=== PATIENT | female | born 1945 | race Caucasian/White ===

== ENCOUNTER 2017-03-07 13:08 | Inpatient (IN) | payer OTHER ==
[~2017-03-07] VITALS: Ht 152.4 cm; Wt 60.0 kg
[~2017-03-07 13:08] MED LIST: BACTRIM DS 8001 TA1 PO; CARAFATE1 G1 PO; HYDRODIURIL25 MG PO; LISINOPRIL40 MG PO; LOVASTATIN20 MG PO; MELOXICAM15 MG PO; METFORMIN500 MG PO; NEURONTIN300 MG PO; NORCO 5-325 TA1 EACH PO; OMEPRAZOLE20 MG PO; VICODIN 5/500 505 MG PO; VITAMIN D2000 IU PO; ZOFRAN4 MG PO
[2017-03-07 13:20] VITALS: BP 196/80; BP 200/80
[2017-03-07] MEDS ORDERED: NEURONTIN400 MG PO (13:24)
[2017-03-07] MEDS ORDERED: AMLODIPINE BESY1 TAB PO (13:25)
[2017-03-07] MEDS ORDERED: AMARYL2 MG PO (13:25)
[2017-03-07 14:09] LABS: BASO % 0.3 % (0.0-1.0); EOS # 0.1 10*3/uL (0.0-0.4); EOS % 1.1 % (1.0-4.0); HEMOGLOBIN 11.3 g/dl (12.0-16.0); LYMPH # 1.7 10*3/uL (1.3-4.4); LYMPH % 27.2 % (27.0-41.0); MEAN CELL VOLUME 97.6 fl (81.0-99.0); MEAN CORPUSCULAR HGB 30.6 pg (27.0-31.0); MEAN CORPUSCULAR HGB CONC 31.4 g/dl (33.0-37.0); MEAN PLATELET VOLUME 11.5 fl (9.6-12.3); MONO # 0.4 10*3/uL (0.1-1.0); MONO % 6.5 % (3.0-9.0); NEUT % 64.7 % (47.0-73.0); PLATELET COUNT AUTOMATED 180 10*3/uL (130-400); RED BLOOD COUNT 3.69 10*6/uL (4.10-5.10); RED CELL DISTRI WIDTH 11.9 % (0-14.5); WHITE BLOOD COUNT 6.1 10*3/uL (4.8-10.8)
[2017-03-07 14:30] LABS: ALBUMIN 3.4 gm/dl (3.1-4.5); ALKALINE PHOSPHATASE 86 U/L (45-117); BILIRUBIN, TOTAL 0.4 mg/dl (0.2-1.0); BUN 17 mg/dl (7-24); CARBON DIOXIDE 30 mmol/L (21-32); CHLORIDE 109 mmol/L (98-107); EST GLOM FILT AFRICAN AMERICAN > 60 ml/min; GLUCOSE 116 mg/dL (65-99); POTASSIUM 5.3 mmol/L (3.5-5.1); SGOT/AST 24 IU/L (3-35); SGPT/ALT 25 U/L (12-78); SODIUM 145 mmol/L (136-145); TOTAL PROTEIN 6.3 gm/dL (6.4-8.2)
[2017-03-07 15:24] VITALS: BP 195/80
[2017-03-07 15:56] LABS: BILIRUBIN NEGATIVE (NEGATIVE); BLOOD 2+ (NEGATIVE); CLARITY CLOUDY (CLEAR); COLOR YELLOW (YELLOW); GLUCOSE NEGATIVE (NEGATIVE); KETONE NEGATIVE (NEGATIVE); LEUKO ESTERASE 1+ (NEGATIVE); NITRITE NEGATIVE (NEGATIVE); PH 7.5 (5.0-9.0); PROTEIN NEGATIVE (NEGATIVE); UROBILINOGEN 0.2 E.U./dl (0.2-1.0)
[2017-03-07 16:05] LABS: BACTERIA 2+; URINE REFLEX COMMENT YES (NO); YEAST 1+
[2017-03-07 17:47] VITALS: BP 188/65
[2017-03-07 20:00] VITALS: BP 190/60
[2017-03-08] VITALS: BP 144/50
[2017-03-08 00:45] LABS: TROPONIN I 0.024 ng/ml (<0.045)
[2017-03-08 06:02] LABS: BASO % 0.2 % (0.0-1.0); EOS % 0.1 % (1.0-4.0); HEMATOCRIT 36.6 % (37.0-47.0); HEMOGLOBIN 11.3 g/dl (12.0-16.0); LYMPH # 1.3 10*3/uL (1.3-4.4); LYMPH % 15.6 % (27.0-41.0); MEAN CELL VOLUME 98.7 fl (81.0-99.0); MEAN CORPUSCULAR HGB 30.5 pg (27.0-31.0); MEAN CORPUSCULAR HGB CONC 30.9 g/dl (33.0-37.0); MEAN PLATELET VOLUME 11.8 fl (9.6-12.3); MONO # 0.6 10*3/uL (0.1-1.0); MONO % 7.1 % (3.0-9.0); NEUT # 6.5 10*3/uL (2.3-7.9); NEUT % 76.6 % (47.0-73.0); PLATELET COUNT AUTOMATED 193 10*3/uL (130-400); RED BLOOD COUNT 3.71 10*6/uL (4.10-5.10); RED CELL DISTRI WIDTH 11.8 % (0-14.5); WHITE BLOOD COUNT 8.5 10*3/uL (4.8-10.8)
[2017-03-08 06:15] LABS: CKMB 0.8 ng/ml (0.5-3.6); TROPONIN I 0.018 ng/ml (<0.045)
[2017-03-08 06:20] LABS: HEMOGLOBIN A1c 6.7 % (4.8-5.6)
[2017-03-08 06:33] LABS: CHLORIDE 108 mmol/L (98-107); SODIUM 145 mmol/L (136-145)
[2017-03-08 06:34] LABS: PROTHROMBIN TIME 10.8 SECONDS (9.0-12.4)
[2017-03-08 06:52] LABS: ALKALINE PHOSPHATASE 81 U/L (45-117); BILIRUBIN, TOTAL 0.4 mg/dl (0.2-1.0); BUN 16 mg/dl (7-24); CARBON DIOXIDE 27 mmol/L (21-32); CHOLESTEROL 151 mg/dL (<200); EST GLOM FILT AFRICAN AMERICAN > 60 ml/min; FREE T4 0.98 ng/dl (0.76-1.46); GLUCOSE 111 mg/dL (65-99); HDL CHOLESTEROL 80 mg/dl (40-60); LDL CHOLESTEROL 62 mg/dL (9-159); MAGNESIUM 1.7 mg/dL (1.5-2.1); SGOT/AST 15 IU/L (3-35); SGPT/ALT 21 U/L (12-78); TOTAL PROTEIN 5.7 gm/dL (6.4-8.2); TRIGLYCERIDES 46 mg/dl (<150); VLDL CHOLESTEROL 9 mg/dL (6-40)
[2017-03-08 06:53] LABS: POTASSIUM 4.1 mmol/L (3.5-5.1)
[2017-03-08 07:04] LABS: VITAMIN D, 25-HYDROXY 18.2 ng/mL (30-100)
[2017-03-08 07:08] LABS: FOLIC ACID > 24.00 ng/mL (>5.38)
[2017-03-08 08:00] VITALS: BP 129/56
[2017-03-08 11:47] VITALS: BP 141/63
[2017-03-08 12:00] VITALS: BP 141/63
[2017-03-08 12:27] LABS: CKMB 0.9 ng/ml (0.5-3.6); TROPONIN I 0.025 ng/ml (<0.045)
[2017-03-08 16:00] VITALS: BP 125/45
[2017-03-08 20:00] VITALS: BP 140/49
[2017-03-09] VITALS: BP 123/55
[2017-03-09 08:00] VITALS: BP 158/73
[2017-03-09] MEDS ORDERED: D-1000 185 MG-11 TAB PO (09:00)
[2017-03-09] MEDS ORDERED: DOXYCYCLINE100 MG PO (09:02)
[2017-03-09] MEDS ORDERED: DIFLUCAN150 MG PO (09:03)
== END 2017-03-09 11:40 | disposition home or self-care (01) | DRG 757 ==
LOC: ED 13:08 → EDHOLD 18:43 → 4E 18:43
PROVIDERS: Hospitalist; Physician Assistant
DX: B37.49 Other urogenital candidiasis (principal); G93.41 Metabolic encephalopathy; E44.0 Moderate protein-calorie malnutrition; E11.65 Type 2 diabetes mellitus with hyperglycemia; E78.5 Hyperlipidemia, unspecified; I10 Essential (primary) hypertension; M54.41 Lumbago with sciatica, right side; E87.5 Hyperkalemia; G47.33 Obstructive sleep apnea (adult) (pediatric); Z90.49 Acquired absence of other specified parts of digestive tract; Z82.49 Family history of ischemic heart disease and other diseases of the circulatory system; Z80.42 Family history of malignant neoplasm of prostate; Z91.013 Allergy to seafood; Z79.899 Other long term (current) drug therapy; Z68.25 Body mass index [BMI] 25.0-25.9, adult

== ENCOUNTER → 2017-10-24 | Outpatient (CLI) | payer OTHER ==
[~2017-10-24] MED LIST changes: +AMARYL2 MG PO; +AMLODIPINE BESY1 TAB PO; +D-1000 185 MG-11 TAB PO; +DIFLUCAN150 MG PO; +DOXYCYCLINE100 MG PO; +NEURONTIN400 MG PO
== END | disposition home or self-care (01) ==
LOC: MAMMO 08:22
DX: Z12.31 Encounter for screening mammogram for malignant neoplasm of breast (principal)

== ENCOUNTER → 2018-09-04 | Outpatient (CLI) | payer OTHER ==
[~2018-09-04] MED LIST changes: +B12100 MC1 PO; +BACTRIM 400-801 EACH PO; +FARXIGA5 M1 PO; +FLOMAX0.4 MG PO; +KLOR-CON 1010 ME1 PO; +LASIX20 MG PO; +PRILOSEC20 M1 PO; +TIZANIDINE2 MG PO; +Vitamin D PO
[2018-09-04 09:27] LABS: BILIRUBIN NEGATIVE (NEGATIVE); BLOOD 3+ (NEGATIVE); CLARITY CLEAR (CLEAR); COLOR YELLOW (YELLOW); GLUCOSE 2+ (NEGATIVE); KETONE NEGATIVE (NEGATIVE); LEUKO ESTERASE NEGATIVE (NEGATIVE); NITRITE NEGATIVE (NEGATIVE); SPECIFIC GRAVITY 1.015 (1.005-1.030); UROBILINOGEN 0.2 E.U./dl (0.2-1.0)
[2018-09-04 09:30] LABS: BASO % 0.5 % (0.0-1.0); EOS # 0.2 10*3/uL (0.0-0.4); EOS % 2.8 % (1.0-4.0); HEMATOCRIT 33.7 % (37.0-47.0); HEMOGLOBIN 10.3 g/dl (12.0-16.0); LYMPH # 1.6 10*3/uL (1.3-4.4); LYMPH % 27.1 % (27.0-41.0); MEAN CELL VOLUME 91.3 fl (81.0-99.0); MEAN CORPUSCULAR HGB 27.9 pg (27.0-31.0); MEAN CORPUSCULAR HGB CONC 30.6 g/dl (33.0-37.0); MEAN PLATELET VOLUME 11.1 fl (9.6-12.3); MONO # 0.4 10*3/uL (0.1-1.0); MONO % 7.6 % (3.0-9.0); NEUT # 3.6 10*3/uL (2.3-7.9); NEUT % 61.7 % (47.0-73.0); PLATELET COUNT AUTOMATED 223 10*3/uL (130-400); RED BLOOD COUNT 3.69 10*6/uL (4.10-5.10); RED CELL DISTRI WIDTH 14.6 % (0-14.5); WHITE BLOOD COUNT 5.8 10*3/uL (4.8-10.8)
[2018-09-04 09:49] LABS: ALBUMIN 3.8 gm/dl (3.1-4.5); CREATININE 1.21 mg/dL (0.55-1.02); POTASSIUM 4.6 mmol/L (3.5-5.1); TOTAL PROTEIN 6.9 gm/dL (6.4-8.2)
[2018-09-04 10:09] LABS: BACTERIA TRACE; RBC 51-100 rbc/hpf (0-2); WBC 0-2 wbc/hpf (0-5)
== END ==
LOC: LAB 08:48 → CT 10:00
PROVIDERS: Urology
DX: N20.0 Calculus of kidney (principal); I70.0 Atherosclerosis of aorta

== ENCOUNTER → 2018-10-01 | Outpatient (CLI) | payer OTHER | END | disposition home or self-care (01) | LOC: RAD 11:44 | DX: N20.0 Calculus of kidney (principal); R30.0 Dysuria; M43.27 Fusion of spine, lumbosacral region; Z96.0 Presence of urogenital implants ==

== ENCOUNTER → 2018-11-01 | Outpatient (CLI) | payer OTHER | END | disposition home or self-care (01) | LOC: US 14:54 | DX: E07.89 Other specified disorders of thyroid (principal) ==

== ENCOUNTER → 2018-12-11 | Outpatient (CLI) | payer OTHER ==
[~2018-12-11] MED LIST changes: +PYRIDIUM100 MG PO
[2018-12-11 18:36] LABS: BASO % 0.2 % (0.0-1.0); EOS # 0.1 10*3/uL (0.0-0.4); EOS % 1.3 % (1.0-4.0); HEMATOCRIT 31.4 % (37.0-47.0); HEMOGLOBIN 9.4 g/dl (12.0-16.0); LYMPH # 1.2 10*3/uL (1.3-4.4); LYMPH % 13.7 % (27.0-41.0); MEAN CELL VOLUME 87.5 fl (81.0-99.0); MEAN CORPUSCULAR HGB 26.2 pg (27.0-31.0); MEAN CORPUSCULAR HGB CONC 29.9 g/dl (33.0-37.0); MEAN PLATELET VOLUME 11.1 fl (9.6-12.3); MONO # 0.8 10*3/uL (0.1-1.0); MONO % 9.3 % (3.0-9.0); NEUT # 6.3 10*3/uL (2.3-7.9); NEUT % 75.1 % (47.0-73.0); PLATELET COUNT AUTOMATED 356 10*3/uL (130-400); RED BLOOD COUNT 3.59 10*6/uL (4.10-5.10); RED CELL DISTRI WIDTH 15.3 % (0-14.5); WHITE BLOOD COUNT 8.5 10*3/uL (4.8-10.8)
[2018-12-11 18:39] LABS: ALBUMIN 2.9 gm/dl (3.1-4.5); CREATININE 1.2 mg/dL (0.55-1.02); POTASSIUM 4.8 mmol/L (3.5-5.1); THYROXINE (T4) TOTAL 7.4 ug/dl (4.8-13.9); TOTAL PROTEIN 7.2 gm/dL (6.4-8.2)
== END | disposition home or self-care (01) ==
LOC: US 16:49 → LAB 16:49 → US 17:00
PROVIDERS: Urology
DX: N20.0 Calculus of kidney (principal); Q63.1 Lobulated, fused and horseshoe kidney; K56.7 Ileus, unspecified; E11.9 Type 2 diabetes mellitus without complications

== ENCOUNTER 2018-12-13 17:59 | Emergency (ER) | payer OTHER ==
[~2018-12-13 17:59] MED LIST changes: -PYRIDIUM100 MG PO
[2018-12-13 18:00] VITALS: BP 195/68
[2018-12-13 18:39] LABS: BASO % 0.1 % (0.0-1.0); EOS # 0.1 10*3/uL (0.0-0.4); EOS % 0.8 % (1.0-4.0); HEMATOCRIT 31.5 % (37.0-47.0); HEMOGLOBIN 9.3 g/dl (12.0-16.0); LYMPH # 1.1 10*3/uL (1.3-4.4); LYMPH % 13.6 % (27.0-41.0); MEAN CELL VOLUME 86.3 fl (81.0-99.0); MEAN CORPUSCULAR HGB 25.5 pg (27.0-31.0); MEAN CORPUSCULAR HGB CONC 29.5 g/dl (33.0-37.0); MONO # 0.7 10*3/uL (0.1-1.0); MONO % 8.4 % (3.0-9.0); NEUT % 76.7 % (47.0-73.0); PLATELET COUNT AUTOMATED 373 10*3/uL (130-400); RED BLOOD COUNT 3.65 10*6/uL (4.10-5.10); RED CELL DISTRI WIDTH 15.4 % (0-14.5); WHITE BLOOD COUNT 7.8 10*3/uL (4.8-10.8)
[2018-12-13 18:52] LABS: BILIRUBIN NEGATIVE (NEGATIVE); BLOOD 2+ (NEGATIVE); CLARITY SL CLOUDY (CLEAR); COLOR YELLOW (YELLOW); GLUCOSE 1+ (NEGATIVE); KETONE NEGATIVE (NEGATIVE); LEUKO ESTERASE 1+ (NEGATIVE); NITRITE NEGATIVE (NEGATIVE); UROBILINOGEN 0.2 E.U./dl (0.2-1.0)
[2018-12-13 18:53] LABS: CREATININE 1.08 mg/dL (0.55-1.02); POTASSIUM 4.8 mmol/L (3.5-5.1)
[2018-12-13 19:00] LABS: BACTERIA 3+; EPITHELIAL CELLS 16-20; MUCOUS TRACE; RBC 0-2 rbc/hpf (0-2)
[2018-12-13] MEDS ORDERED: PRILOSEC20 M1 PO ×2 (19:17→19:35)
[2019-02-07] MEDS ORDERED: PYRIDIUM100 MG PO (17:18)
== END 2018-12-13 19:35 | disposition home or self-care (01) ==
LOC: ED 17:59
PROVIDERS: Emergency Medicine
DX: R10.9 Unspecified abdominal pain (principal); R19.7 Diarrhea, unspecified; R05 Cough; E11.22 Type 2 diabetes mellitus with diabetic chronic kidney disease; I12.9 Hypertensive chronic kidney disease with stage 1 through stage 4 chronic kidney disease, or unspecified chronic kidney disease; N18.3 Chronic kidney disease, stage 3 (moderate); E11.40 Type 2 diabetes mellitus with diabetic neuropathy, unspecified; G89.29 Other chronic pain; E78.5 Hyperlipidemia, unspecified; Z91.013 Allergy to seafood; Z79.899 Other long term (current) drug therapy; Z79.84 Long term (current) use of oral hypoglycemic drugs; Z87.442 Personal history of urinary calculi; Z90.49 Acquired absence of other specified parts of digestive tract

== ENCOUNTER → 2018-12-13 | Outpatient (CLI) | payer OTHER ==
[2018-12-20 17:11] LABS: BUSHITE 0.07 ratio (0.00-3.00); CALCIUM OXALATE 3.09 ratio (0.00-6.00); CALCIUM, URINE 1.9 mg/dL (Not Estab.); CALCIUM, URINE 5.7 mg/24 hr (100.0-300.0); CITRIC ACID (CITRATE) 8 mg/24 hr (320-1240); MONOSODIUM URATE 0.81 ratio (0.00-4.00); OSMOLALITY, URINE 362 (300-900); SODIUM, URINE 17 (39-258); SODIUM, URINE 56 mmol/L (Not Estab.); STRUVITE 0.01 ratio (0.00-1.00); URIC ACID 2.83 ratio (0.00-1.20); pH 24 HR URINE 5.3 (.)
== END | disposition home or self-care (01) ==
LOC: LAB 16:15
PROVIDERS: Urology
DX: E83.50 Unspecified disorder of calcium metabolism (principal); R31.9 Hematuria, unspecified; R20.0 Anesthesia of skin

== ENCOUNTER → 2018-12-26 | Outpatient (CLI) | payer OTHER ==
[~2018-12-26] MED LIST changes: +PYRIDIUM100 MG PO
[2018-12-26 14:50] LABS: BILIRUBIN NEGATIVE (NEGATIVE); BLOOD NEGATIVE (NEGATIVE); CLARITY SL CLOUDY (CLEAR); COLOR YELLOW (YELLOW); GLUCOSE 3+ (NEGATIVE); KETONE NEGATIVE (NEGATIVE); LEUKO ESTERASE 1+ (NEGATIVE); NITRITE NEGATIVE (NEGATIVE); SPECIFIC GRAVITY <= 1.005 (1.005-1.030); UROBILINOGEN 0.2 E.U./dl (0.2-1.0)
[2018-12-26 15:09] LABS: WBC TNTC wbc/hpf (0-5); YEAST 2+
== END | disposition home or self-care (01) ==
LOC: CT 13:00 → LAB 13:34
PROVIDERS: Urology
DX: N39.0 Urinary tract infection, site not specified (principal); N20.0 Calculus of kidney

== ENCOUNTER → 2019-02-13 | Day surgery (SDC) | payer OTHER ==
[~2019-02-13] VITALS: Ht 152.4 cm; Wt 58.1 kg
--- NOTE | ~2019-02-13 | PROC NOTE ---
[place], [place] PROCEDURE NOTE NAME: [facility]ASH [facility]ENCER [facility] #: [id number] UNIT #: [id number] ROOM: DOCTOR: JULIO PASTOR MD BIRTHDATE: [birth year] DOS: 02/13/2019 PREOPERATIVE DIAGNOSIS: Screening examination. POSTOPERATIVE DIAGNOSIS: Poor prep. PROCEDURE: Colonoscopy (incomplete). ENDOSCOPIST: Julio Pastor MD TEST LEAD: ELVIRA. ANESTHESIA: MAC. INDICATIONS: This is a 73-year-old lady who is here for a screening examination. The procedure and its complications were explained to the patient in detail. Complications that were discussed included but were not limited to, bleeding, colon perforation, and missed lesions and she agreed to proceed. DESCRIPTION OF PROCEDURE: After identifying the patient, the patient was brought to the endoscopy suite and placed in the left lateral position. After time-out procedure was called, IV sedation was administered. A digital rectal exam was performed, which was within normal limits. An adult colonoscope was now introduced into the anal canal and advanced sequentially into the rectum and sigmoid colon up to approximately 55-60 cm. Despite multiple attempts, the mucosa could not be visualized because of poor prep. Multiple times irrigation was attempted to clear the mucosa of stool, but because of the poor prep in the entirety of the colon, this colonoscopy was aborted. The scope was withdrawn and the patient was brought back to the recovery in a stable fashion. The patient is recommended to have another colonoscopy with a different prep at a future date. This will discuss within the office in the postoperative recovery. Julio Pastor MD CM:PROCNOTE:PROCEDURE NOTE [id number] JULIO PASTOR MD
[2019-02-13 09:21] VITALS: BP 145/62
[2019-02-13 10:44] VITALS: BP 162/62
[2019-02-13 11:00] VITALS: BP 168/64
[2019-02-13 11:15] VITALS: BP 161/69
== END | disposition home or self-care (01) ==
LOC: SDC 02-10 08:45
DX: R10.32 Left lower quadrant pain (principal); R63.4 Abnormal weight loss; I10 Essential (primary) hypertension; E11.9 Type 2 diabetes mellitus without complications; M19.90 Unspecified osteoarthritis, unspecified site; M54.9 Dorsalgia, unspecified; G89.29 Other chronic pain; E78.00 Pure hypercholesterolemia, unspecified; Z90.710 Acquired absence of both cervix and uterus; Z98.84 Bariatric surgery status; Z79.899 Other long term (current) drug therapy; Z98.890 Other specified postprocedural states; Z82.49 Family history of ischemic heart disease and other diseases of the circulatory system; Z83.3 Family history of diabetes mellitus